=== PATIENT | female | born 1975 | race Caucasian/White ===

== ENCOUNTER → 2021-02-03 | Outpatient (CLI) | payer OTHER ==
[2021-02-04 08:14] LABS: VITAMIN D, 25-HYDROXY 12.5 ng/mL (30.0-100.0)
[2021-02-04 11:14] LABS: RHEUMATOID ARTHRITIS FACTOR <10.0 IU/mL (0.0-13.9)
== END ==
LOC: LAB 12:46
PROVIDERS: Nurse Practitioner Family
DX: M25.562 Pain in left knee (principal); M25.561 Pain in right knee; M79.10 Myalgia, unspecified site; R53.83 Other fatigue; D89.9 Disorder involving the immune mechanism, unspecified; R76.8 Other specified abnormal immunological findings in serum
CPT/HCPCS: 36415; 73565; 82550; 82728; 83520; 84439; 84443; 85652; 86140; 86431